=== PATIENT | female | born 1975 | race Caucasian/White ===

== ENCOUNTER 2023-01-31 10:01 | Emergency (ER) | payer OTHER, SELFPAY ==
[2023-01-31 10:13] VITALS: BP 126/69; PULSE 72; RESP 16; TEMP 36.6; O2SAT 100
--- NOTE | 2023-01-31 10:33 | ED.SKABFB ---
HPI - Skin/Abscess/Foreign Bdy General Chief complaint: Skin/Abscess/Foreign Body Stated complaint: Rt Nostril Irritation Source: patient Mode of arrival: ambulatory Limitations: no limitations History of Present Illness HPI narrative: 47-year-old female presents to [facility] with complaints of area of pain and swelling to her right inner nare since this morning. Patient was at she has had runny nose over the past few days. Patient reports that she does have a history of boils and abscesses in the past. 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 Patient denies weight loss. Fever, body aches, chills, nausea vomiting or diarrhea. Patient reports that she is scheduled for hysterectomy next month Onset (ago): hour(s) (4) Relieving factors: none Exacerbating factors: none Associated symptoms: other (runny nose) Treatments prior to arrival: none Related Data Home Medications Medication Instructions Recorded Confirmed atenolol 50 mg tablet 50 mg DIRECTED 01/31/23 01/31/23 cetirizine 10 mg tablet (Zyrtec) 10 mg PO DAILY 01/31/23 01/31/23 escitalopram oxalate 20 mg tablet 20 mg DIRECTED 01/31/23 01/31/23 valsartan 80 mg tablet 80 mg DIRECTED 01/31/23 01/31/23 Allergies Allergy/AdvReac Type Severity Reaction Status Date / Time Sulfa (Sulfonamide Allergy Unknown Verified 02/04/16 12:47 Antibiotics) Review of Systems Constitutional: Constitutional: Denies chills, Denies fatigue, Denies fever(s) and Denies weakness ENT: Denies dizziness, Denies epistaxis, Denies nasal congestion and Denies sore throat Comments: Runny nose, area pain and swelling to right inner nares Cardiovascular: Cardiovascular: Denies chest pain, Denies rapid heart rate and Denies radiating jaw, neck or arm pain Respiratory: Respiratory: Denies chest congestion, Denies cough, Denies dyspnea and Denies wheezing Gastrointestinal: Gastrointestinal: Denies diarrhea, Denies nausea and Denies vomiting PMFSH Comments At time of signature, I agree with nursing past medical, surgical, social and family history. There is no relevant family history pertinent to the presenting complaint. Exam Const: General: healthy appearing and no acute distress Nutritional Appearance: well nourished Orientation/consciousness: patient oriented x3 Limitations: no limitations HENMT: Head: normal to inspection Ears: external ears normal, TM's normal bilaterally and EAC's normal Face/Nose/Sinus: Normal external nose present Face and sinus: normal facial exam and sinuses nontender Mouth: Yes Normal oral and palatal mucosa present, Yes lip normal and Yes moist mucous membranes Other: Very small area of redness and swelling noted to right inner nares; there is no drainage, bleeding or bruising noted. There is no obvious abscess noted. There is no unusual discoloration noted. There is no drainage or bleeding noted from nares Eyes: Conjunctivae: conjunctivae normal Neck: Neck: normal visual inspection Resp: Effort & Inspection: normal respiratory effort and not labored Auscultation: clear to auscultation bilaterally, no crackles, no rales, no rhonchi and no wheezes Cardio: Rate: regular rate Rhythm: regular rhythm Heart sounds: no murmurs Skin: General skin exam: normal color Wounds: no wounds Neuro: General: patient oriented x3 Speech: normal speech Psych: Affect: normal affect Attitude: cooperative Course Course Level of Care: Express Care Visit Vital Signs Vital signs: Vital Signs Temperature 36.6 C 01/31/23 10:13 Pulse Rate 72 01/31/23 10:13 Respiratory Rate 16 01/31/23 10:13 Blood Pressure 126/69 01/31/23 10:13 Pulse Oximetry 100 01/31/23 10:13 Oxygen Delivery Room Air 01/31/23 10:13 Temperature 36.6 C 01/31/23 10:13 Pulse Rate 72 01/31/23 10:13 Respiratory Rate 16 01/31/23 10:13 Blood Pressure 126/69 01/31/23 10:13 Pulse Oximetry 100 01/31/23 10:13 Oxyg
== END 2023-01-31 10:45 | disposition home or self-care (01) ==
PROVIDERS: Emergency Provider Nurse Practitioner Family; PCP Family Medicine Sports Medicine
DX: R22.0 Localized swelling, mass and lump, head (principal)
CPT/HCPCS: 99213; G0463

== ENCOUNTER 2023-03-03 11:22 | Outpatient (CLI) | payer OTHER, SELFPAY ==
--- NOTE | 2023-03-03 11:32 | ECG_ITS ---
Measurements Intervals [place] Rate: 71 P: 71 MS: 163 QRS: 57 QRSD: 81 T: 52 QT: 396 QTc: 433 Interpretive Statements SINUS RHYTHM NO PREVIOUS ECG AVAILABLE FOR COMPARISON Electronically Signed On 03-03-2023 18:32:05 CDT by Marquise West M.D.
[2023-03-03 11:59] LABS: Alanine Aminotransferase 32 U/L (6-35); Albumin Level 4.6 g/dL (3.5-5.1); Alkaline Phosphatase 59 U/L (38-126); Anion Gap 4 mmol/L (8-16); Aspartate Amino Transferase 41 U/L (14-36); Bilirubin,Total 0.9 mg/dL (0.2-1.3); Blood Urea Nitrogen 8 mg/dL (7-17); Calcium 9.1 mg/dL (8.4-10.2); Carbon Dioxide 28 mmol/L (22-30); Chloride 104 mmol/L (98-107); Estimated Glomerular Filt Rate > 60; Glucose 90 mg/dL (65-110); Potassium 4.5 mmol/L (3.4-5.0); Sodium 136 mmol/L (137-145)
== END 2023-03-03 11:23 | disposition home or self-care (01) ==
LOC: ANHSURGERY 11:27
PROVIDERS: PCP Family Medicine Sports Medicine; Visit Provider Obstetrics & Gynecology
DX: N92.0 Excessive and frequent menstruation with regular cycle (principal); I10 Essential (primary) hypertension
CPT/HCPCS: 36415; 80053; 86850; 86900; 86901; 93005

== ENCOUNTER 2023-03-09 00:23 | Day surgery (SDC) | payer OTHER, SELFPAY ==
[2023-03-01 12:59] VITALS: BMI 26.2
--- NOTE | 2023-03-01 13:04 | PC.NURSE ---
Report to the Outpatient Waiting Room, entrance under the green pavilion located off [facility], at time 9:00 on date 03/09/23. Planned Procedure Time: 11:00. Time changes happen often and if your time is changed the preop area will call you the afternoon before. - You and your visitor will be asked to self-screen and do not enter if you have any COVID symptoms. - A mask is optional within the hospital at this time. Patients may have clear liquids (water, carbonated beverages, clear teas, apple juice) until 3 hours prior to surgery with a maximum of 20 ounces. - No food from midnight until time of surgery Take the following medications with a SIP of water the morning of surgery: ATENOLOL, ESCITALOPRAM DO NOT STOP ANY OF YOUR OTHER PRESCRIPTION MEDICATIONS PRIOR TO SURGERY EXCEPT THE FOLLOWING Medications to discontinue per physician: N/A Date to take last dose: N/A Please no make-up, nail belarusian, hairspray, perfume, deodorant, or body powder the day of surgery. No jewelry (including any body piercings) or valuables the day of surgery, leave them at home. Please take a shower or bath the night before, or the morning of, surgery with an antibacterial soap. Wear comfortable, loose fitting clothing. - Jewelry must be removed prior to entering the operating room. Rings and piercings that are not removed may be cut off. - The hospital will not accept responsibility for valuables. - Please leave all valuables, including medications, at home the day of surgery. If you are going home after surgery, a licensed recycle driver must drive you home. - NO public transportation without another adult if you receive anesthesia. - We recommend that an adult stay with you for 24 hours following discharge. - We also recommend that you do not drive, make important decision, drink alcoholic beverages, or take any drugs that were not prescribed by your health care provider for at least 24 hours after your discharge time. Follow any additional instructions given to you from your surgeon. If you or anyone in your household have experienced Covid symptoms in the past week, please notify your surgeon or the nurse liaison at the phone number below for possible testing. Telephone instructions given to PT - SHER VICTOR and asked if any additional questions and then verbalized understanding. Patient advised to call surgeon office or pre surgery nurse liaison [phone] if any additional questions.
[2023-03-09] VITALS (10 sets, daily range): BP systolic 92–132; BP diastolic 59–83; PULSE 58–74; RESP 10–18; TEMP 36.2–36.9; O2SAT 97–100
[2023-03-09] MEDS: ACETAMINOPHEN 500 MG TABLET 1000 MG PO (09:19)
[2023-03-09] MEDS: KETOROLAC 15 MG/ML VIAL (*BKC) IV PUSH (09:28)
--- NOTE | 2023-03-09 09:42 | WPDANESEPPF ---
Anes - Initial Pre Proc Eval Procedure: Operation Date: 03/09/23 11:00 Proposed Procedures p Robotic Assisted Hysterectomy with Bilateral Salpingectomy - Mili Guzman MD Date/Time: 03/09/23 09:42 Surgeon: Mili Guzman MD Pre Op Diagnosis: menorrhagia Patient Data Age: 47 Gender: F Height: 1.79 m Weight: 83.4 kg Last Vital Signs Temp 36.2 C L 03/09/23 09:03 Pulse 74 03/09/23 09:03 Resp 16 03/09/23 09:03 BP 132/83 03/09/23 09:03 Pulse Ox 99 03/09/23 09:03 O2 Del Method Room Air 03/09/23 09:03 Allergies Allergy/AdvReac Type Severity Reaction Status Date / Time Sulfa (Sulfonamide Allergy Intermediate Rash Verified 03/09/23 09:09 Antibiotics) Home Medications Medication Instructions Recorded Confirmed Type atenolol 50 mg tablet 50 mg PO DAILY 01/31/23 03/09/23 History cetirizine 10 mg tablet (Zyrtec) 10 mg PO DAILY 01/31/23 03/09/23 History escitalopram oxalate 20 mg tablet 20 mg PO DAILY 01/31/23 03/09/23 History valsartan 80 mg tablet 80 mg PO DAILY 01/31/23 03/09/23 History Patient hx anesthesia problems: post op nausea/vomiting Family hx anesthesia problems: none Results Review: All pre-operative results and documents have been reviewed as part of the pre-operative evaluation. [facility] Social History Social History Smoking packs per day: 0.75 Smoking cigarettes per day: 15.0 Years smoked: 27 Smoking pack-years: 20.25 Smoking status: Current every day smoker Tobacco type: cigarettes Alcohol intake: current Drinks per week: 14 Alcohol use details: WINE NIGHTLY Substance use: never Substance use type: does not use Living arrangements: with family Spiritual care concerns: No Anes - Eval Final PreProcedure Day of Procedure 03/09/23 09:42 Patient weight: overweight Heart: regular rate and rhythm Lungs: decreased breath sounds Airway: Mallampati scale class II Neurological: alert and oriented Last oral intake: >/= 8 hours ASA classification: III Emergent: no Anesthetic plan: proceed Anesthesia type and monitoring: general ETT and standard monitoring Results Review: All pre-operative results and documents have been reviewed as part of the pre-operative evaluation. Informed Consent: The patient's anesthetic plan and its attendant risks and benefits were discussed with the patient/family/POA. Questions were solicited and answers provided to the satisfaction of the patient/family/POA.
[2023-03-09] MEDS: SCOPOLAMINE 1.5 MG PATCH TRANSDERM (09:45)
[2023-03-09] MEDS: LACTATED RINGERS 1,000 ML 30 ML IV CONT ×2 (09:45→12:50)
--- NOTE | 2023-03-09 09:46 | WPDHPUPDATE1 ---
History and Physical Update Update Date/Time: 03/09/23 09:46 History and Physical has been reviewed, including an updated exam of the patient. There are NO changes in the patient's condition. Risks, benefits, and alternatives have been discussed and questions answered. Patient agrees to proceed with procedure.
[2023-03-09] MEDS: ceFAZolin 2 GM/D5W 50 ML 2 GM/50 ML BAG IVPB (10:15)
--- NOTE | 2023-03-09 12:26 | W.PM.PROC2 ---
Procedure Note - Detailed Date of Procedure 03/09/23 Pre-op Diagnosis menorrhagia Post-op Diagnosis Same Procedure Performed Robot assisted Total hysterectomy with bilateral salpingectomy. Surgeon Mili Guzman MD Anesthesia General Indications heavy vaginal bleeding, pelvic pain Findings normal-appearing uterus, ovaries, and left tube, right tube was partially resected. Some scarring over the posterior cul-de-sac peritoneum. Description of Procedure This patient was taken to the operating room. She was prepped and draped in the dorsal lithotomy position after induction of general anesthesia. The uterine manipulator and Smooth cup were placed. This was done with a speculum and tenaculum. The speculum was placed. The cervix was grasped with a tenaculum. The stay sutures were placed at 3 and 9:00 a.m.. The stay sutures of 0 Vicryl were tied to the appropriately Size scope after it was slipped around the cervix.. The tip of the SHALONDA manipulator was placed in the intrauterine cavity. The cup was slid into place around the cervix and into the fornices. It was locked into place. The sutures were then wrapped around the handle and tied under tension. A 8 mm skin incision was made in the left upper quadrant the abdomen. a 5 mm Visiport trocar was inserted into abdominal cavity and pneumoperitoneum was achieved. A 8 mm supraumbilical incision was made and a 8 mm trocar was inserted into the intrauterine cavity under direct visualization of the scope. an 8 mm incision was made in the right upper quadrant of the abdomen and an 8 mm robotic trocar was placed the inter uterine cavity under direct visualization the scope. An 11 mm trocar was inserted in the right upper quadrant of the abdomen rectal is a cystoscope after an incision was made there as well. The robot was docked. Electronic Orientation of the robot was performed. Bilateral ureteral lysis was performed. This was done from the pelvic brim down to the uterine artery. This was done with careful dissection using sharp and blunt dissection. The fallopian tubes were removed bilaterally. The mesosalpinx around the fallopian tubes were cauterized transected with LigaSure cautery. This was done in a bilateral fashion from the ovary to the uterine cornua. The fallopian tube was transected at the uterine cornu and amputated. The tube was taken out the left lower quadrant trocar site. In a stepwise fashion along the lateral aspects of the uterus the round ligament and broad ligaments were cauterized transected down to the level of the uterine arteries. A bladder flap was created in the bladder was moved distally to the end of the cervix and over the Smooth cup. The bilateral uterine arteries were cauterized and transected. Colpotomy was then performed. In a circumferential fashion the vagina was transected using unipolar cautery. The incision was made down on the Smooth cup. The uterus and cervix were taken out through the vagina. A pneumo occluder was placed in the vagina. The vaginal cuff was closed with a 0 V lock suture in a running fashion. The pelvis was irrigated with copious amounts antibiotic irrigation. The ureters were again examined and found to be intact and flowing freely under the uterine arteries into the bladder. The bladder was intact. It was examined directly. The vagina was irrigated with Betadine solution after removal of the Pneumo occluder. the trocars were removed after the robot was undocked. The skin was closed with subacute or Dermabond. The patient was taken to recovery room. She was stable condition. Sponge lap and needle counts were correct x2. Estimated Blood Loss 125 Urine Output 800 Drains Yes Packing No Pathology Yes Complications No immediate complications Condition Stable Disposition Floor
--- NOTE | 2023-03-09 13:58 | PC.NURSE ---
PT arrived on unit via bed accompanied by spouse and taken to room 289. PT alert and awake and oriented to room and surrounding area and white board. 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 PT and spouse both recipients of such instructions and no barriers to learning identified at this time. Pt received such instructions per one to one discussion and demonstrations this shift. PT verbalized understanding of such care.
[2023-03-09] MEDS: KETOROLAC 30 MG/ML VIAL (*BKC) IV PUSH (14:16)
[2023-03-09] MEDS: IBUPROFEN 600 MG TABLET PO (23:18)
[2023-03-10 05:10] VITALS: BP 98/57; PULSE 66; RESP 16; TEMP 36.9; O2SAT 100
[2023-03-10] MEDS: IBUPROFEN 600 MG TABLET PO (05:13)
[2023-03-10] MEDS: HYDROcodone/acetaminophen (*CRX) 5-325 MG TABLET 1 TAB PO ×2 (05:13→09:31)
[2023-03-10 07:20] VITALS: BP 98/68; PULSE 65; RESP 18; TEMP 37.1; O2SAT 100
[2023-03-10 08:00] VITALS: PULSE 72; RESP 18; O2SAT 100
--- NOTE | 2023-03-10 08:00 | PC.NURSE ---
PT introductions made and plan of care discussed per post up logistic manager surgery, pain management, daily care activities and pending discharge to home. PT sole recipient of such instructions and no barriers to learning identified at this time. Pt received such instructions per one to one discussion and demonstrations this shift. PT verbalized understanding of such care.
--- NOTE | 2023-03-10 08:12 | PM.GYNPNOP ---
ORTHOTIC PRACTITIONER - A/P Postoperative Procedures: Procedures Operation Date: 03/09/23 11:00 Actual Procedure Side Surgeon p Robotic Assisted Hysterectomy with Bilateral Salpingectomy Bilateral Mili Guzman MD Postoperative day: 1 Postoperative status: doing well Postoperative plan: see orders Time Spent With Patient Time: Total time spent is greater than 50% in coordination of care (as documented) at patient's floor/unit and/or counseling patient: Time with patient: 15 - 25 minutes ORTHOTIC PRACTITIONER- PN:Subj Post-Op Subjective Date/time seen: 03/10/23 08:12 Subjective: patient reports feeling better, patient has no complaints and pain is well controlled Exam Const: General: healthy appearing, comfortable and no acute distress Resp: Auscultation: clear to auscultation bilaterally, no rales, no rhonchi and no wheezes Cardio: Rate: regular rate Heart sounds: no click, no murmurs and no rubs GI: Inspection: non-distended Auscultation: normal bowel sounds Extrem: General: normal to inspection, no pedal edema and no calf tenderness ORTHOTIC PRACTITIONER - PN: Obj Data Vital Signs Vital Signs: Vital Signs - 24 hr 03/09/23 09:03 03/09/23 12:30 03/09/23 12:45 Temperature 97.1 F L 97.5 F L Pulse Rate 74 72 60 Respiratory Rate 16 16 16 Blood Pressure 132/83 127/59 L 113/76 Pulse Oximetry 99 100 100 Oxygen Delivery Room Air Simple Face Mask Simple Face Mask Oxygen Flow Rate 8 8 03/09/23 13:00 03/09/23 13:15 03/09/23 13:30 Temperature Pulse Rate 60 60 61 Respiratory Rate 10 L 12 16 Blood Pressure 92/69 L 110/62 100/70 Pulse Oximetry 100 99 100 Oxygen Delivery Simple Face Mask Room Air Room Air Oxygen Flow Rate 8 03/09/23 13:45 03/09/23 13:58 03/09/23 13:58 Temperature 98.3 F Pulse Rate 60 58 L 58 L Respiratory Rate 12 16 16 Blood Pressure 109/69 112/80 Pulse Oximetry 98 97 97 Oxygen Delivery Room Air Room Air Oxygen Flow Rate 03/09/23 20:40 03/09/23 20:40 03/09/23 23:18 Temperature 98.1 F 98.4 F Pulse Rate 58 L 61 Respiratory Rate 18 18 Blood Pressure 110/80 100/66 Pulse Oximetry 100 99 Oxygen Delivery Room Air Oxygen Flow Rate 03/09/23 23:18 03/10/23 05:10 03/10/23 05:10 Temperature 98.4 F Pulse Rate 66 Respiratory Rate 16 Blood Pressure 98/57 L Pulse Oximetry 100 Oxygen Delivery Room Air Room Air Oxygen Flow Rate 03/10/23 07:20 Temperature 98.8 F Pulse Rate 65 Respiratory Rate 18 Blood Pressure 98/68 L Pulse Oximetry 100 Oxygen Delivery Oxygen Flow Rate Intake/Output Intake/Output: Intake & Output 03/07/23 03/08/23 03/09/23 03/10/23 23:59 23:59 23:59 23:59 Intake Total 2675 Output Total 1605 Balance 1070 Meds/Results Medications: Active Medications Generic Name Dose Route Start Last Admin Trade Name Freq PRN Reason Stop Dose Admin Hydrocodone Bitart/Acetaminophen 1 tab 03/09/23 13:54 Hydrocodone/Acetaminophen (*Crx) 10-325 Mg Tablet PO Q3H PRN Pain Rated 6 or Greater Hydrocodone Bitart/Acetaminophen 1 tab 03/09/23 13:54 03/10/23 05:13 Hydrocodone/Acetaminophen (*Crx) 5-325 Mg Tablet PO 1 tab Q3H PRN Administration Pain Rated 5 or Less Atenolol 50 mg 03/10/23 09:00 Atenolol 50 Mg Tablet PO DAILY [facility] Escitalopram Oxalate 20 mg 03/10/23 09:00 Escitalopram Oxalate 10 Mg Tablet PO DAILY [facility] Ibuprofen 600 mg 03/09/23 13:54 03/10/23 05:13 Ibuprofen 600 Mg Tablet PO 600 mg Q6H PRN Administration Cramping Ketorolac Tromethamine 30 mg 03/09/23 13:54 03/09/23 14:16 Ketorolac 30 Mg/Ml Vial (*Bkc) IV PUSH 03/14/23 13:53 30 mg Q6H PRN Administration Pain Rated 4-6 Loratadine 10 mg 03/10/23 09:00 Loratadine 10 Mg Tablet PO 04/09/23 08:59 DAILY [facility] Naloxone HCl 0.1 mg 03/09/23 13:54 Naloxone Hcl 0.4 Mg/Ml Vial IV PUSH Q2M PRN Respiratory rate less than 10 Ondansetron HCl 4 mg 03/09/23 13:54 Ondansetron Inj 4 Mg/2 Ml Vial I
[2023-03-10] MEDS: ESCITALOPRAM OXALATE 10 MG TABLET 20 MG PO (09:31)
[2023-03-10] MEDS: LORATADINE 10 MG TABLET PO (09:31)
[2023-03-10 09:32] VITALS: PULSE 72
[2023-03-10] MEDS: VALSARTAN 80 MG TABLET PO (09:32)
[2023-03-10] MEDS: atenoloL 50 MG TABLET PO (09:32)
--- NOTE | 2023-03-10 11:00 | PC.NURSE ---
PT discharged to home ambulatory accompanied by both parents and taken to waiting car. Follow up appts confirmed
== END 2023-03-10 11:00 | disposition home or self-care (01) ==
LOC: ANHSURGERY 09:42 → ANHOB2 13:56
PROVIDERS: PCP Family Medicine Sports Medicine; Visit Provider Obstetrics & Gynecology
PROC: (CPT 58571; principal; 2023-03-09 11:00)
DX: N92.0 Excessive and frequent menstruation with regular cycle (principal); R10.2 Pelvic and perineal pain; N80.03 Adenomyosis of the uterus; D25.0 Submucous leiomyoma of uterus; D25.1 Intramural leiomyoma of uterus; D25.2 Subserosal leiomyoma of uterus; F17.210 Nicotine dependence, cigarettes, uncomplicated
CPT/HCPCS: 58571; S2900; 88305; 88307; 99199; A9270; J0690; J1100; J1170; J1885; J2250; J2405; J2704; J3010; J7030; J7120

== ENCOUNTER 2025-03-17 10:29 | Emergency (ER) | payer OTHER, SELFPAY ==
--- OUTSIDE RECORDS SUMMARY | 2025-03-17 10:32 | XMS_ITS | Clinical Summary ---
Author Organization [facility] Address [address] [place] [address] Care Team Providers Care [employer] Name Role Phone Nohemy Blandon MD Primary Care Provider [phone] Allergies Active Allergy Reactions Criticality Noted Date Comments Sulfa Antibiotics Unknown 05/31/2011 Medications cetirizine 10 MG tablet Take 10 mg by mouth daily. Active mupirocin (BACTROBAN) 2 % ointmentIndicatio ns:MRSA nasal colonization Apply 1 gm each nostril bid for 5 days 22 g 3 Active ALPRAZolam (XANAX) 1 MG tabletIndications :Anxiety with flying Take 1 tablet (1 mg total) by mouth 3 (three) times daily as needed for Sleep. 12 tablet 4 Active valsartan (DIOVAN) 80 MG tabletIndications :Primary hypertension TAKE 1 TABLET(80 MG) BY MOUTH DAILY 90 tablet 3 4 Active atenolol (TENORMIN) 50 MG tabletIndications :Tachycardia TAKE 1 TABLET(50 MG) BY MOUTH DAILY 90 tablet 3 4 Active azithromycin (ZITHROMAX) 250 MG tabletIndications :Acute non-recurrent frontal sinusitis Take 2 tablets by mouth on day one then 1 daily for four days. 6 tablet 5 Active escitalopram (LEXAPRO) 20 MG tabletIndications :Depression, unspecified depression type TAKE 1 TABLET(20 MG) BY MOUTH DAILY 30 tablet 5 Active Active Problems Problem Noted Date Diagnosed Date Tachycardia 11/22/2022 Anxiety 06/21/2018 Ventral hernia 01/12/2018 Resolved Problems Problem Noted Date Diagnosed Date Resolved Date Right elbow pain 11/28/2019 10/28/2022 Furuncle of skin or subcutaneous tissue 08/10/2018 10/28/2022 Tired 08/10/2018 10/28/2022 Abdominal mass 01/05/2018 10/28/2022 Graves disease 01/05/2018 10/28/2022 Encounter for preventive health examination 12/26/2017 07/25/2020 Thyrotoxicosis with thyrotoxic crisis 05/28/2014 10/28/2022 Overview (11/28/2019): Overview: THYROTOX NOS NO CRISIS Fracture of humerus 02/28/2012 10/28/20 22 Encounters Date Type Department Care Team Description 12/24/2024 Telephone [facility] Family and Sports Medicine - [address] [id number] Nohemy Blandon MD Work Excuse from Last 3 Months Immunizations Immunization Administration Dates Next Due Fluzone 6 Months+ Quad (0.5 mL Prefilled Syringe ) 10/21/2022 MODERNA COVID-19 (12+) MRNA, LNP-S, PF, 100 MCG/ 0.5 ML DOSE 12/25/2020,11/27/2020 Family History Medical History Relation Comments Heart Disease Father Heart Disease Maternal Grandfather CT Paternal Grandfather Relation Status Comments Father Maternal Grandfather Paternal Grandfather Social History Tobacco Use Types Packs/Day Years Used Date Smoking Tobacco: Every Day Cigarettes 1 25 Smokeless Tobacco: Never Tobacco Cessation:Ready to Q uit: No; Counseling Given: Not Answered Alcohol Use Standard Drinks/Week Comments Yes 11.7 (1 standard drink = 0.6 oz pure alcohol) AUDIT-C Answer Date Recorded Frequency of Alcohol Consumption Never 11/28/2019 Average Number of Drinks Not on file 020 Frequency of Binge Drinking Not on file 11/14 PHQ-2 Answer Date Recorded Patient Health Questionnaire-2 Score 0 10/21/2022 Comments Unknown Sex and Gender Information Value Date Recorded Sex Assigned at Not on file Legal Sex Female 5:54 PM CDT Gender Identity Not on file Sexual Orientation Not on file Last Filed Vital Signs Vital Sign Reading Time Taken Comments Blood Pressure 161/105 10/26/2023 10:47 AM OPERATIONS/DISPATCH Pulse 58 10/26/2023 10:47 AM OPERATIONS/DISPATCH Temperature 36.7 C (98.1 F) 10/26/2023 10:47 AM OPERATIONS/DISPATCH Respiratory Rate 16 10/26/2023 10:47 AM OPERATIONS/DISPATCH Oxygen Saturation 100% 10/26/2023 10:47 AM OPERATIONS/DISPATCH Inhaled Oxygen Concentration - - Weight 83.5 kg (184 lb) 10/26/2023 10:47 AM OPERATIONS/DISPATCH Height 179.1 cm (5' 10.5 ) 10/26/2023 10:[address] Body Mass Index 26.03 10/26/2023 10:47 AM OPERATIONS/DISPATCH Plan of Treatment Health Maintenance Due Date Last Done Comments DTaP, Tdap and Td Vaccines ( 1 - Tdap) 1996 Hepatitis B Vaccines (1 of 3 - 19+ 3-dose series) 1996 Pneumococcal Vaccine: Pediatrics (0 to 5 Years) and At-Risk Patients (6 to 49 Years) (1 of 2 - PCV) 1996 Cervical Cancer Screening Pa p with HPV Testing (Age 30 to 64) Every 5 Years 2007 Annual Physical 10/21/2023 10/21/2022, 02/17/2021 COVID-19 Vaccine (3 - 2023-2 5 season) 2024 12/25/2020, 11/27/2020 PHQ-2 (Physician [place]) 11/14/2024 Cervical Cancer Screening Pa p Smear (Age 30 to 64) Every 3 Years 10/05/2025 10/05/2022 Cervical Cancer Screening wi th HPV 10/05/2025 Colorectal Cancer Screening FIT-DNA (3 Years) 11/26/2025 11/26/2022, 11/26/2022 Mammogram Screening 12/20/2025 12/20/2023, 03/02/2021 Hepatitis C Completed 10/21/2022 Meningococcal B Vaccine Aged Out No l onger eligible based on patient's age to complete this topic Meningococcal Vaccine Aged Out No ozzy estefany eligible based on patient's age to complete this topic RSV Immunizations Under 20 Months Aged Out No longer eligible b ased on patient's age to complete this topic Procedures Procedure Name Priority Date/Time Associated Diagnosis Comments MG SCREENING W DORYS FATOU DIGI Routine 12/20/2023 3:21 PM OPERATIONS/DISPATCH Annual physical exam COLOGUARD (EXACT SCIENCE) Routine 11/26/2022 9:55 AM OPERATIONS/DISPATCH Encounter for colorectal cancer screening HEPATITIS PANEL,ACUTE Routine 10/21/2022 4:14 PM OPERATIONS/DISPATCH Annual physical exam from Last 3 Months or Most Recently Relevant to Health Maintenance Results * MG SCREENING W DORYS FATOU DIGI (12/20/2023 3:21 PM OPERATIONS/DISPATCH) Anatomical Region Laterality Modality Breast Bilateral Mammography 12/20/2023 5:22 PM OPERATIONS/DISPATCH Narrative 12/20/2023 5:27 PM OPERATIONS/DISPATCH Examination: Screening bilateral mammogram Exam Date: 12/20/2023 3:09 PM Clinical history: Routine screening. Comparison: 03/02/2021 Technique: Digital screening mammography of both breasts was performed. Breast tomosynthesis acquisitions were obtained and reviewed. This study was read with the assistance of a computer-aided detection system. Tissue density: The breast tissue is heterogeneously dense, which may obscure small masses. Findings: The breast parenchymal findings are stable. Scattered benign-appearing calcifications are noted. No suspicious masses, malignant appearing calcifications, skin thickening or other abnormalities are present. No significant change from the prior exam. IMPRESSION: No suspicious mammographic findings. Recommendation: 1. Routine Screening, Bilateral Assessment: ACR BI-RADS 2 - BENIGN FINDING(S) Ordered By: NOHEMY BLANDON Interpreted By: Colby Jo MD, 12/20/2023 5:22 PM us Nohemy Blandon MD MAMMO Final Result * COLOGUARD (EXACT SCIENCE) (11/26/2022 9:55 AM OPERATIONS/DISPATCH) COLOGUARD RESULT Negative Negative [facility] (CLIA #:[id number]) Comment: NEGATIVE TEST RESULT. A negative Cologuard result indicates a low likelihood that a colorectal cancer (CRC) or advanced adenoma (adenomatous polyps with more advanced pre-malignant features) is present. The chance that a person with a negative Cologuard test has a colorectal cancer is less than 1 in 1500 (negative predictive value >99.9%) or has an advanced adenoma is less than 5.3% (negative predictive value 94.7%). These data are based on a prospective cross-sectional study of 10,000 individuals at average risk for colorectal cancer who were screened with both Cologuard and colonoscopy. (Nino Finn al, N Engl J Med 2014;370(14):1536-4378) The normal value (reference range) for this assay is negative. COLOGUARD RE-SCREENING RECOMMENDATION: Periodic colorectal cancer screening is an important part of preventive healthcare for asymptomatic individuals at average risk for colorectal cancer. Following a negative Cologuard result, the [place] [employer] and U.S. Multi-Society Task Force screening guidelines recommend a Cologuard re-screening interval of 3 years. References: [place] [employer] Guideline for Colorectal Cancer Screening: https://www.cancer.org/cancer/tccyq-gjhejz-zpmtam/fdqmzzniy-dymuwqghu-twsgflf/ac s-rec ommendations.html.; Dustin DK, Antonieta CARRASCO, Angel BranchK, Colorectal Cancer Screening: Recommendations for Physicians and Patients from the U.S. Multi-Society Task Force on Colorectal Cancer Screening , Am J Gastroenterology 2017; 112:3614-0123. TEST DESCRIPTION: Composite algorithmic analysis of stool DNA-biomarkers with hemoglobin immunoassay. Quantitative values of individual biomarkers are not reportable and are not associated with individual biomarker result reference ranges. Cologuard is intended for colorectal cancer screening of adults of either sex, 45 years or older, who are at average-risk for colorectal cancer (CRC). Cologuard has been approved for use by the U.S. FDA. The performance of Cologuard was established in a cross sectional study of average-risk adults aged 50-84. Cologuard performance in patients ages 45 to 49 years was estimated by sub-group analysis of near-age groups. Colonoscopies performed for a positive result may find as the most clinically significant lesion: colorectal cancer [4.0%], advanced adenoma (including sessile serrated polyps greater than or equal to 1cm diameter) [20%] or non- advanced adenoma [31%]; or no colorectal neoplasia [45%]. These estimates are derived from a prospective cross-sectional screening study of 10,000 individuals at average risk for colorectal cancer who were screened with both Cologuard and colonoscopy. (Nino Finn al, N Engl J Med 2014;370(14):2652-4040.) Cologuard may produce a false negative or false positive result (no colorectal cancer or precancerous polyp present at colonoscopy follow up). A negative Cologuard test result does not guarantee the absence of CRC or advanced adenoma (pre-cancer). The current Cologuard screening interval is every 3 years. ([place] [employer] and U.S. Multi-Society Task Force). Cologuard performance data in a 10,000 patient pivotal study using colonoscopy as the reference method can be accessed at the following location: www.Stemnion/results. Additional description of the Cologuard test process, warnings and precautions can be found at www.[employer]. STOOL STOOL SPECIMEN / Unknown 11/26/2022 9:55 AM OPERATIONS/DISPATCH 11/27/2022 9:40 AM OPERATIONS/DISPATCH Nohemy Blandon MD BODY FLUIDS AND STOOLS ORDERAB LES Final Result [facility] [address] [place] [address], [facility] (CLIA #:[id number]) [address] [place] [id number] * HEPATITIS PANEL,ACUTE (10/21/2022 4:14 PM OPERATIONS/DISPATCH) HEPATITIS B SURFACE AG NON-REACT JUAN M NON-REACT JUAN M 10/21/2022 9:48 PM OPERATIONS/DISPATCH [facility] Comment:HBsAg NOT DETECTED. HEP B CORE IGM NON-REACT JUAN M NON-REACT JUAN M 10/21/2022 9:48 PM OPERATIONS/DISPATCH [facility] Comment: IgM ANTI HBc NOT DETECTED. DOES NOT EXCLUDE THE POSSIBILITY OF EXPOSURE TO OR INFECTION WITH HBV. NO RETEST REQUIRED. HIGH DOSES OF BIOTIN MAY INTERFERE WITH THIS TEST RESULT. CORRELATION TO CLINICAL HISTORY AND PRESENTATION RECOMMENDED. HAV IGM NON-REACT JUAN M NON-REACT JUAN M 10/21/2022 9:48 PM OPERATIONS/DISPATCH [facility] Comment: IgM ANTI HAV NOT DETECTED. DOES NOT EXCLUDE THE POSSIBILITY OF EXPOSURE TO OR INFECTION WITH HAV. LEVELS OF IgM ANTI HAV MAY BE BELOW THE CUTOFF IN EARLY INFECTION. HEPATITIS C AB NON-REACT JUAN M NON-REACT JUAN M 10/21/2022 9:48 PM OPERATIONS/DISPATCH [facility] Comment: ANTIBODIES TO HCV NOT DETECTED. DOES NOT EXCLUDE THE POSSIBILITY OF EXPOSURE TO HCV. 10/21/2022 4:14 PM OPERATIONS/DISPATCH Nohemy Blandon MD LABORATORY Final Result [facility] [address] [place] [address], [id number] from Last 3 Months or Most Recently Relevant to Health Maintenance Insurance GENERIC - COMMERCIAL [facility] Care Teams [employer] Relationship Specialty Start Date End Date Nohemy Blandon MD [address] [address] PCP - General FAMILY PRACTICE 05/08/19
--- OUTSIDE RECORDS SUMMARY | 2025-03-17 10:32 | XMS_ITS | Encounter Summary ---
Author Organization [facility] Address [address] [place] [id number] Care Team Providers Care Coding Quality Coordinator Name Role Phone Nohemy Peck MD Primary Care Provider [phone] Encounter Details Date Type Department Care Team (Late st Contact Info) Description 10/11/2022 SeeFuture Message Enc [facility] Medical Group Family and Sports Medicine - [place] [phone] [facility] Schedule Appointment: Annual Physical Due Social History Tobacco Use Types Packs/Day Years Used Date Smoking Tobacco: Every Day Cigarettes 1 25 Smokeless Tobacco: Never Alcohol Use Standard Drinks/Week Comments Yes 11.7 (1 standard drink = 0.6 oz pure alcohol) AUDIT-C Answer Date Recorded Frequency of Alcohol Consumption Never 11/28/2019 Average Number of Drinks Not on file 020 Frequency of Binge Drinking Not on file 11/14 PHQ-2 Answer Date Recorded PHQ-2 Score - If the patient scores above 3, please move on to questions 3-9 0 02/17/2021 Comments Unknown Sex and Gender Information Value Date Recorded Sex Assigned at Not on file Legal Sex Female 5:54 PM CDT Gender Identity Not on file Sexual Orientation Not on file documented as of this encounter Plan of Treatment Not on file documented as of this encounter Visit Diagnoses Not on filedocumented in this encounter Additional Health Concerns Assessment Noted Time PHQ-9 Depression Total Score: 3 02/18/20 21 2:16 PM CDT documented as of this encounter Care Teams Coding Quality Coordinator Relationship Specialty Start Date End Date Nohemy Peck MD [address] [address] PCP - General FAMILY PRACTICE 05/08/19 documented as of this encounter
--- OUTSIDE RECORDS SUMMARY | 2025-03-17 10:32 | XMS_ITS | Data Portability ---
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 Plan of Treatment Reminders Order Date Submit Date Provider Last Modified By Organization Details Last Modified Time Details Appointments None recorded. Lab None recorded. Referral None recorded. Procedures None recorded. Surgeries robotic assisted hysterectom y with salpingecto my (SURG) 2022 023 [facility] [address], [place], [address], 13:30:04 Imaging US, pelvis 2022 [address]23 [address], [address], [place], [address], 21:10:08 US, transvagina l 2022 [address], [address], [place], [address], 21:10:08 Medication Orders None recorded. Patient TargetsNo targets recorded. Patient InstructionsNo instructions recorded. Reason for Referral None Reported. Results Created Date Observation Date Name Description Value Unit Range Abnormal Flag Note LastModifiedBy Organization Detail LastModifiedTime 01/21/2001/20/2023 US, pelvi s No observ ation record ed. [email or web address] [place] [address], [place], [address], 01/20/2023 18:41:12 01/21/20 23 01/20/2023 US, trans vagin al No observ ation record ed. [email or web address] [place] [address], [place], [address], 01/20/2023 18:41:03 01/21/20 23 01/20/2023 US, pelvi s No observ ation record ed. PAVITHRA Ryann [address], [place], [address], 01/24/2023 20:24:08 Result Notes None recorded. Procedures Surgical History Date Name Laterality Status Provider Name and Address Organization Details Recorded Time 03/09/20 23 ROBOTIC ASSISTED HYSTERECTOMY WITH SALPINGECTOMY (SURG) completed [facility] 03/10/2023 10:08:53 03/09/20 23 ROBOTIC ASSISTED HYSTERECTOMY WITH SALPINGECTOMY (SURG) completed [facility] 03/10/2023 10:08:47 10/05/20 22 Date of Last Pap Smear completed [facility] 01/05/2023 17:06:56 Orthopedic Surgery completed [facility] 09/28/2022 15:47:11 Imaging Results Imaging Date Name Status LastModified by Organization Details LastModified Time 01/20/2023 US, pelvis completed turn[facility] [place] [address], [place], [address], 01/20/2023 18:41:12 01/20/2023 US, transvaginal completed [facility] [place] [facility] [address], [place], [address], 01/20/2023 18:41:03 01/20/2023 US, pelvis completed PAVITHRA Ryann [address], [place], [address], 01/24/2023 20:24:08 Procedure Notes None recorded. Medical Equipment None Reported. Allergies Allergen ID Allergen Name Allergen Category Reaction Reaction Severity Criticality Documentation Date Start Date Code Code System Note Provider Name and Address Organization Details Recorded Time Substance with sulfonami de structure and antibacte rial mechanism of action (substanc e) medicatio n rash moderate Not available 01/21/2023 [id number] SNOMED Starlaramin Barber [facility] 3 10:04:32 Medications Name Sig Start Date Stop Date Status Note LastModified by Organization Details LastModified Time trazodone 50 mg tablet active Not Available Not Available Not Available hydrocodone 5 mg-acetamin ophen 325 mg tablet TAKE 1 TO 2 TABLETS BY MOUTH EVERY 6 HOURS NEEDED FOR PAIN active Not Available Not Available No t Available valsartan 80 mg tablet 1 tablet every day by oral route. active Not Available Not Available No t Available Zyrtec 10 mg tablet active Not Available Not Available No t Available metronidazo le 500 mg tablet TAKE 1 TABLET BY MOUTH EVERY 8 HOURS active Not Available Not Available No t Available citalopram 20 mg tablet 01/05 completed Not Available Not Available Not Available cephalexin 500 mg capsule TAKE 1 CAPSULE BY MOUTH EVERY 12 HOURS FOR 10 DAYS active Not Available Not Available No t Available mupirocin 2 % topical ointment APPLY 1 GRAM TOPICALLY IN EACH NOSTRIL TWICE DAILY FOR 5 DAYS active Not Available Not Available No t Available atenolol 50 mg tablet 1 tablet every day by oral route. active Not Available Not Available No t Available naproxen 500 mg tablet 01/05 completed Not Available Not Available Not Available escitalopra m 10 mg tablet 01/05 completed Not Available Not Available Not Available escitalopra m 20 mg tablet active Not Available Not Available Not Available Slynd 4 mg (28) tablet Take 1 tablet every day by oral route. 01/04 completed [id number] 05/03 24 Not Available Not Available Not Available BinaxNOW COVID-19 Ag Self Test kit TEST DIRECTED TODAY 09/28 completed Not Available Not Available Not Available Vitals Date Recorded Body height Body mass index (BMI) Body weight Systolic blood pressure Diastolic blood pressure Provider Name and Address Organization Details Last Updated DateTime 01/21/2023 177.8 cm 26.7 kg/m2 37080.18 g 114 mm[Hg] 77 mm[Hg] [facility] 3 10:06:48 Date Recorded Body height Body mass index (BMI) Body weight Systolic blood pressure Diastolic blood pressure Provider Name and Address Organization Details Last Updated DateTime 03/03/2023 177.8 cm 26.8 kg/m2 09910.77 g 109 mm[Hg] 76 mm[Hg] [facility] 3 15:13:19 Date Recorded Body height Body mass index (BMI) Body weight Systolic blood pressure Diastolic blood pressure Provider Name and Address Organization Details Last Updated DateTime 03/17/2023 177.8 cm 26.7 kg/m2 94899.18 g 121 mm[Hg] 86 mm[Hg] [facility] 3 15:33:39 Social History Question Answer Notes LastModified by Organizat ion Details LastModified Time Do You Have An Advance Directive? Yes Information n ot available 09/28/2022 What Is Your Level Of Alcohol Consumption? Occasional Information not available 09/28/2022 How Many Years Have You Consumed Alcohol? 25 Information not available 09/28/2022 Are You Blind Or Do You Have Difficulty Seeing? No Information n ot available 09/28/2022 What Is Your Level Of Caffeine Consumption? Heavy Information not available 09/28/2022 In The 14 Days Before Symptom Onset, Have You Had Close Contact With A Laboratory-confirm ed COVID-19 While That Case Was Ill? No Information n ot available 09/28/2022 In The 14 Days Before Symptom Onset, Have You Had Close Contact With A Person Who Is Under Investigation For COVID-19 While That Person Was Ill? No Information not available 09/28/2022 Have You Been To An Area Known To Be High Risk For COVID-19? No Information not available 09/28/2022 Are You Deaf Or Do You Have Serious Difficulty Hearing? No Information not available 09/28/2022 What Type Of Diet Are You Following? REGULAR Information n ot available 09/28/2022 What Is The Highest Grade Or Level Of School You Have Completed Or The Highest Degree You Have Received? 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 Yes Information not available 09/28/2022 Do You Use Protection During Sex? No Information not available 09/28/2022 Do You Use Your Seat Belt Or Car Seat Routinely? Yes Information not available 09/28/2022 Do You Have Smoke And Carbon Monoxide Detectors In Your Home? Yes Information not available 09/28/2022 At What Age Did You Start Smoking Tobacco? 19 Information not available 09/28/2022 How Much Tobacco Do You Smoke? 1 PPD Information not available 09/28/2022 Do You Feel Stressed (tense, Restless, Nervous, Or Anxious, Or Unable To Sleep At Night)? [id number] Information not available 09/28/2022 Do You Use Any Illicit Or Recreational Drugs? No Information not available 09/28/2022 Do You Use Sunscreen Routinely? Yes Information not available 09/28/2022 How Many Years Have You Smoked Tobacco? 28 Information not available 09/28/2022 Have You Used IV Drugs? No Information not available 09/28/2022 Sex: Unknown Functional Status Question Answer Note LastModified by Organizat ion Details LastModified Time Do you have difficulty walking or climbing stairs? No [email or web address] Information not available 03/03/2023 Are you able to walk? YESWOREST Information not available 09/28/2022 Are you able to care for yourself? Yes [email or web address] Information not available 03/03/2023 Do you have difficulty dressing or bathing? No [email or web address] Information not available 03/03/2023 What is your exercise level? None Information not available 09/28/2022 Mental Status None recorded. Family History Nothing Reported. Medical History Condition Response Anxiety Disorder Y Allergies (Food, seasonal, environmental ) Y Drug/Latex Allergies/Reactions Y Depression/ depression Y Anesthesia Complications Y History of abnormal pap Y Cancer Y Thyroid Problems Y Hypertension Y Gynecological History Statement/Question Response Abnormal Pap Y Flow Moderate Date of LMP 12/18/2022 On BCP's at Conception? N Was last menstrual period normal Y STIs/STDs Y HPV Vaccine N Duration of Flow (days) 5 Current Control Method Hysterectom y Age at First Child 27 Frequency of Cycle (Q days) 28 Sexually Active? Y Age of first menstrual cycle 14 Date of Last Pap Smear 10/05/2022 Sexual Problems? Y LMP Approximate Obstetrics History GPAL:G 2 P 0 0 0 2 Type Value Living 2 Total 2 Past Encounters Encounter ID Performer Location Encounter Start Date Encounter Closed Date Diagnosis/Indication Diagnosis SNOMED-CT Code Diagnosis ICD10 Code Diagnosis Note [id number] MEETA Torres [place] [address],[facility] [place] [address] 09/28/2022 15:23:11 09/28/2022 17:57:39 Vulval irritation 826830777 N90.89 Suspect contact dermatitis Vaginitis panel sentVulvar care guidelines discussed in-depthD/ c use of antibacter ial soap to cleanse the vulva/vagi naRx sent - apply twice a day for 7 daysSTI testing declined RTC for CAMELIA as she is due - last pap around 7 years ago Time spent in visit is a total of 30 mins with at least 50% of visit consisting of counseling and review of plan of care. Contact dermatitis 52202 004 L25.9 [id number] MEETA Torres [place] [address],[place] [address] 10/05/2022 10:21:32 10/05/2022 12:11:35 Contraception care management 312850820 Z30.9 Gynecologi c examination 98375984 Z01.419 Suggested Calcium with Vitamin D 1200-1500m g daily. Patient advised to get an annual flu shot in the fall and she could obtain at [facility] or [facility] care clinic. Also to obtain TDap vaccinatio n if you have not had one in the last 10 years. Recommend yearly mammograms . Encouraged monthly self breast exams. Encourage safe sexual practices, to use condoms and limit partners if not already in a monogamous relationsh ip. Engage in daily exercise of low impact aerobic exercise 45-60 minutes 4-5 times weekly. Avoid tobacco and illicit drugs as well as using moderation with alcohol intake less than 1-2 8 oz beverages daily. This lifestyle behavior pattern will lead to less health conditions and longer life span. If BMI greater than 25 weight watchers or dietary consult advised. All questions have been answered. Patient appears to understand informatio n, but if you have any questions please call or respond to this email. WWEBC - partner with vasectomyW ould like to discuss BC options to lighten the periods and reduce crampsDeni es hx of DVT/PE, HTN, Stroke/FL, liver disease, BC, or migraine with aura Discussed all control options in great detail. Pt would like to start POP. She is aware of the risks and benefits. She has contraindi cations to use of OCP or other estrogen containing hormonal therapy. Pt will start her pills on the first tuesday following the start of her period. She is aware it is not effective for control the first month. She is also aware of the importance of taking at the same time every day. Encouraged use of condoms as the pill does not protect against STD's. Will return in 3 months for med check. Consent was read and signed. Pt verbalized understand ing.Abel samples given x 4 monthsRTC for med check in 3 months Hx of abnormal pap years ago - no procedures required per patientLas t pap 7 years agoPap done todaySTI testing declinedUT D with PCPMammogr am order givenColon cancer screening discussed - she will consider colonoscop y vs cologuard and f/u with PCPRTC for 3 month med check Elevated blood-pressure reading without diagnosis of hypertension 270632083 R03.0 BP 140/90 - no symptoms. She will f/u with PCP for BP check and check BP at home. ED precaution s discussed [id number] MEETA Torres [place] [address] [address] 01/05/2023 16:57:27 01/05/2023 17:39:48 Contraception care management 313482959 Z30.9 She recently stopped slynd. We discussed options moving forward to help lighten/ma ke periods less painful. Discussed available options. Not interested in an IUD. She would like to consider an ablation.W e agreed to repeat TVUS for hx of complex right ovarian cyst, u/s f/u with Dr. Guzman as she would like to consider an ablation. Time spent in visit is a total of 20 mins with at least 50% of visit consisting of counseling and review of plan of care. Complex cy st of right ovary [id number] 2795392 N83.291 [id number] Wade Guzman MD [place] [address] [address] 01/20/2023 17:22:13 01/21/2023 15:10:30 Uterine leiomyoma 51315437 D25.9 N83.291 [id number] Wade Guzman MD [place] [address] [address] 01/21/2023 09:48:10 01/24/2023 10:32:09 Menorrhagia 067090716 N92.0 This patient is a 47-year-ol d female with uterine fibroids and severe menorrhagi a. She has longstandi ng heavy bleeding that has failed medical treatment. She has accidents, getting blood on her bedding and clothing and her car. Her bleeding severely affects her quality of life and activities of daily living. Her FX relationsh ips with significan t other. We talked about treatment options in detail. She has failed multiple medical treatment options. We talked about surgical treatment options. We talked about procedures . We spent 40 minutes face-to-fa ce. More than 50% was counseling . We made a decision to perform surgery. We agreed to proceed with robotic or laparoscop ic hysterecto my with bilateral salpingect xenia. I explained the procedure to her in detail. I talked about risk with her. She will return for the informed consent process. Uterine leiomyoma 497949 05 D25.9 N83.291 [id number] Wade Guzman MD [place] [address] [address] 03/03/2023 15:03:12 03/04/2023 13:15:32 Menorrhagia 705863930 N92.0 Uterine leiomyoma 458612 05 D25.9 N83.291 this patient is a 47-year-ol d female with myoma and severe menorrhagi a. We have agreed to perform robotic assisted total hysterecto my with bilateral salpingect xenia. She understand s risks, benefits, and alternativ es. She has completed the informed consent process and is ready to proceed. [id number] Wade Guzman MD [place] [address] [address] 03/11/2023 09:26:08 03/11/2023 09:27:22 [id number] Wade Guzman MD [place] [address] [address] 03/17/2023 15:04:11 03/17/2023 16:28:02 Postoperative care 718465749 Z48.89 this patient is a 47-year-ol d female presents for postop follow-up. She is 1 week postop from a robotic hysterecto my with bilateral salpingect xenia. She is recovering normally. She looks well. She reports clean dry and intact incisions. They were examined and are clean dry and intact. There is no bruising. No evidence infection. She will return to work next week. Health Concerns Section Related Observation LastModified by Organization Detai ls LastModified Time None Recorded Concern Status LastModified by Organization Details LastModified Time None Recorded Advance Directives Directive Y: Payers Encounter Date Sequence Insurance Name Policy Number Policy Tijerina Covered Member ID Tijerina Member ID Guarantor Name 01/20/2023 1 [employer] [id number] Andreina Allena [id number] Andreina Waynelia 01/21/2023 1 [employer] [id number] Andreina Penaavalia [id number] Andreina Penaavalia 03/03/2023 1 [facility] ([facility]) Andreina Waynelia [id number] Andreina Bartolome 03/09/2023 1 [facility] ([facility] Andreina Mancuso [id number] Andreina Mancuso 03/17/2023 1 [facility] ([facility] Andreina Mancuso [id number] Andreina Mancuso Notes Date Note Type Note Provider Name and Address Organization Details Recorded Time 01/21/2023 text/html This patient is a 47-year-old female with uterine fibroids and severe menorrhagia. She has longstanding heavy bleeding that has failed medical treatment. She has accidents, getting blood on her bedding and clothing and her car. Her bleeding severely affects her quality of life and activities of daily living. Her FX relationships with significant other. We talked about treatment options in detail. She has failed multiple medical treatment options. We talked about surgical treatment options. We talked about procedures. We spent 40 minutes [id number]. More than 50% was counseling. We made a decision to perform surgery. We agreed to proceed with robotic or laparoscopic hysterectomy with bilateral salpingectomy. I explained the procedure to her in detail. I talked about risk with her. She will return for the informed consent process. Wade Guzman MD [address], [place], [address], [facility] 01/21/2023 18:24:27 03/03/2023 text/html This patient is a 47-year-old female with uterine fibroids and severe menorrhagia. We have agreed to perform robotic assisted hysterectomy with bilateral salpingectomy. She understands there is risk to the procedure. I explained the procedure to her in detail. The patient understands the procedure. The procedure was described to the patient in great detail. the patient also understands the risks. The risks were also explained in detail. She understands that injuries May occur during surgery. She understands these injuries can result in hospitalization, more surgery, and severe illness. She understands there is risk of hemorrhage and infection. Wade Guzman MD [address], [place], [address], [facility] 03/05/2023 12:38:52 03/17/2023 text/html this patient is a 47-year-old female presents for postop follow-up. She is 1 week postop from a robotic hysterectomy with bilateral salpingectomy. She is recovering normally. She looks well. She reports clean dry and intact incisions. They were examined and are clean dry and intact. There is no bruising. No evidence infection. She will return to work next week. Wade Gumzan MD [address], [place], [address], [facility] 03/17/2023 16:25:01 OBGyn Episode Ob Episode Information Episode Created Date Number of Fetuses Patient Bloodtype Patient rh Status Prepregnancy Weight lbs Domestic Partner Domestic Partner Phone Father Name Mine Shifter Status 09/28/20 22 1 CLOSED Fetus Data First Name Last Name Admitted to NICU Weight (g) Sex Living Outcome Pediatric Complications Fetus ID Race Codes Race Delivery Type 4195.72 6 F Full Term [id number] Vaginal Delivery Sin Calculation Initial Sin Date Initial Exam Date Initial Exam Provider Initial Ultrasound Date Last Menstrual Period Date Ultra Sound Weeks Gestation 0 Eighteen To Twenty Week Sin Update Ultra Sound Date Fundal Height At Umbil Quickening Date Ultra Sound Latest Weeks Gestation Final Sin Confirmed By Final Sin Confirmed Date Final Sin Date Ultra Sound Latest Days Gestation 0 0 Menstrual History Last Menstrual Date Menses Monthly On Bcp Conception Prior Menses Frequency Hcg Plus Date Menarche Onset Age Delivery Information Delivery Date Delivery Type Labor Anesthesia Weeks Gestation Incision Type Labor Labor Length Hrs Delivered By Post Complications Tubal Sterilization Discharge Date Comments 3 38 Discharge Information Feeding Method Contraceptive Method Maternal HG B and HCT Levels Ob Episode Information Episode Created Date Number of Fetuses Patient Bloodtype Patient rh Status Prepregnancy Weight lbs Domestic Partner Domestic Partner Phone Father Name Mine Shifter Status 09/28/20 22 1 CLOSED Fetus Data First Name Last Name Admitted to NICU Weight (g) Sex Living Outcome Pediatric Complications Fetus ID Race Codes Race Delivery Type 3770.25 6704 M Full Term [id number] Vaginal Delivery Sin Calculation Initial Sin Date Initial Exam Date Initial Exam Provider Initial Ultrasound Date Last Menstrual Period Date Ultra Sound Weeks Gestation 0 Eighteen To Twenty Week Sin Update Ultra Sound Date Fundal Height At Umbil Quickening Date Ultra Sound Latest Weeks Gestation Final Sin Confirmed By Final Sin Confirmed Date Final Sin Date Ultra Sound Latest Days Gestation 0 0 Menstrual History Last Menstrual Date Menses Monthly On Bcp Conception Prior Menses Frequency Hcg Plus Date Menarche Onset Age Delivery Information Delivery Date Delivery Type Labor Anesthesia Weeks Gestation Incision Type Labor Labor Length Hrs Delivered By Post Complications Tubal Sterilization Discharge Date Comments 5 38 Discharge Information Feeding Method Contraceptive Method Maternal HG B and HCT Levels
--- NOTE | 2025-03-17 10:35 | ED_ITS ---
HPI - General Adult General Chief complaint: Skin/Abscess/Foreign Body Stated complaint: Skin/Abscess/Foreign Body Time Seen by Provider: 03/17/25 10:35 Source: patient Mode of arrival: ambulatory Limitations: no limitations History of Present Illness HPI narrative: 49-year-old female patient presents to the [facility] with complaints of a wound to the left groin that has been there for about a week. Patient states she gets boils to this area often and states that if she does use any kind of razor to the groin area she immediately put some mupirocin on the area to decrease risk of infection. Patient states she typically treats this with some you proceed then however this 1 has stuck around for little bit longer than normal. Patient states that she did wake up with a little bit of discharge in her underwear. Denies fevers, body aches or chills. Denies any nausea, vomiting or diarrhea. Related Data Home Medications ?Medication ?Instructions ?Recorded ?Confirmed ?Last Taken ?Type atenolol 50 mg tablet 50 mg PO DAILY 01/31/23 03/17/25 03/09/23 History cetirizine 10 mg tablet (Zyrtec) 10 mg PO DAILY 01/31/23 03/17/25 03/08/23 History escitalopram oxalate 20 mg tablet 20 mg PO DAILY 01/31/23 03/17/25 03/09/23 History valsartan 80 mg tablet 80 mg PO DAILY 01/31/23 03/17/25 03/08/23 History Allergies Allergy/AdvReac Type Severity Reaction Status Date / Time Sulfa (Sulfonamide Allergy Intermediate Rash Verified 03/17/25 10:35 Antibiotics) Review of Systems Review of Systems: CONSTITUTIONAL: Denies fever, chills, or sweats. EYES: Denies visual changes, redness, or discharge. ENT: Denies rhinorrhea, congestion, sore throat, or otalgia. CARDIOVASCULAR: Denies chest pain, palpitations, or edema. RESPIRATORY: Denies cough or dyspnea. GASTROINTESTINAL: Denies abdominal pain, nausea, vomiting, or diarrhea. GENITOURINARY: Denies dysuria or hematuria. SKIN: Denies rash or itching. Positive wound to left groin x1 week MUSCULOSKELETAL: Denies back pain, joint pain, or myalgia. NEUROLOGIC: Denies headache, numbness, or weakness. PSYCHIATRIC: Denies anxiety or depression. [facility] Past Medical History Medical History (Updated 03/17/25 @ 10:58 by ISRAEL Dove) Boils Social History Social History Smoking packs per day: 0.75 Smoking cigarettes per day: 15.0 Years smoked: 27 Smoking pack-years: 20.25 Smoking status: Current every day smoker Tobacco type: cigarettes Alcohol intake: current Drinks per week: 14 Alcohol use details: WINE NIGHTLY Substance use: never Substance use type: does not use Living arrangements: with family Spiritual care concerns: No Comments At the time of my signature I agree with nursing past medical history, surgical, social, and family history. There is no relevant family history pertinent to the presenting complaint. Exam Narrative: GENERAL: Well-appearing, well-nourished, and in no acute distress. HEAD: Normocephalic, atraumatic. EYES: PERRLA and EOMI. ENT: Nares clear, no rhinorrhea or epistaxis. Mucous membranes moist. NECK: Supple. No lymphadenopathy CHEST: Clear to auscultation. No respiratory distress. HEART: Regular rate and rhythm. No murmur heard. Normal peripheral pulses. ABDOMEN: Soft, nontender, nondistended, normal active bowel sounds. EXTREMITIES: Normal range of motion. No edema. SKIN: Warm, dry, no rash. patient has approximately 2 cm x 1 cm raised abscess noted to the left groin area there is no active discharge at this time. There is some surrounding erythema no warmth noted to touch. NEURO: No focal deficits. Alert and oriented x3. Course Course Level of Care: Express Care Visit Vital Signs Vital signs: Vital Signs Temperature 36.7 C 03/17/25 10:38 Pulse Rate 75 03/17/25 10:38 Respiratory Rate 18 03/17/25 10:38 Blood Pressure 127/71 03/17/25 10:38 Pulse Oximetry 100 03/17/25 10:38 Oxygen Delivery Room Air 03/17/25 10:38 Temperature 36.7 C 03/17/25 10:38 Pulse Rate 75 03/17/25 10:38 Respiratory Rate 18 03/17/25 10:38 Blood Pressure 127/71 03/17/25 10:38 Pulse Oximetry 100 03/17/25 10:38 Oxygen Delivery Room Air 03/17/25 10:38 Vital signs reviewed. Procedures Abscess I/D abdomen: Date of Incision: 03/17/25 Time of Incision: 10:45 Side (if applicable): left (groin) Sedation/analgesia: none Local Anesthetic: lidocaine 1% Amount of anesthesia used (mL): 4 Technique: incised with #11 blade Irrigation: Yes Packing used?: none I&D Results: Pus (chunky) Abcess I&D Additional Comments: The procedure was explained and verbal consent is obtained. The wound was anesthetized with4 ml of 1% lidocaine with good anesthesia. Sterile drape and prep are done. The fluctuant center was incised with #11 blade scalpel. A small amount of white exudate was expressed or removed. The wound was probed for loculated area and irrigated with normal saline. Wound was left open. Dressing was applied. The patient tolerated the procedure well. Medical Decision Making MDM Narrative Medical decision making narrative: the wound was opened and drained and a sample was collected and sent to the lab. We will discharge patient home with oral antibiotics and encourage warm compresses to help encourage the wound to drain. Patient verbalized understanding denies any other questions or concerns at this time. Differential Diagnosis Differential Diagnosis: Differential diagnosis: Abscess, cellulitis, hidradenitis, laceration, puncture wound. Vital Signs Vital Signs: Vital Signs Temperature 36.7 C 03/17/25 10:38 Pulse Rate 75 03/17/25 10:38 Respiratory Rate 18 03/17/25 10:38 Blood Pressure 127/71 03/17/25 10:38 Pulse Oximetry 100 03/17/25 10:38 Oxygen Delivery Room Air 03/17/25 10:38 Temperature 36.7 C 03/17/25 10:38 Pulse Rate 75 03/17/25 10:38 Respiratory Rate 18 03/17/25 10:38 Blood Pressure 127/71 03/17/25 10:38 Pulse Oximetry 100 03/17/25 10:38 Oxygen Delivery Room Air 03/17/25 10:38 Critical Care Time Critical Care Time Critical Care Time: No Discharge Plan Discharge Clinical Impression: Abscess of left groin Patient Disposition: Home Condition: Stable Instructions: Antibiotic Form, Abscess Incision and Drainage (DC) Additional Instructions: warm compresses to the area 20-30 minutes 4-6 times a day and as needed elevate the area if possible antibiotic as directed--finish the medicine tylenol/ibuprofen for pain Use the medication as provided for severe pain--cautiion drowsiness--do not drink alcohol or drive with these medications. caution each tablet contains 325 mg of Tylenol--the maximum dose of Tylenol is 4000 mg in 24 hours. This medication may cause constipation consider starting a laxative at this time watch for increasing infection--redness, swelling, drainage if the wound was packed--remove the packing in 2 days follow up with PCP in 2-4 days for a wound check recheck if develop fever, chills, increasing symptoms Patient Language: Sammarinese Prescriptions: New doxycycline hyclate 100 mg capsule 100 mg PO BID 7 Days Qty: 14 0RF No Action cetirizine [Zyrtec] 10 mg Tablet 10 mg PO DAILY valsartan 80 mg tablet 80 mg PO DAILY atenolol 50 mg tablet 50 mg PO DAILY escitalopram oxalate 20 mg tablet 20 mg PO DAILY hydrocodone-acetaminophen 5-325 mg tablet 1 - 2 tablet PO Q6H PRN (Reason: pain) Qty: 25 0RF Follow-up/Referrals: Liv,Nohemy Henley MD [Primary Care Provider] - Time of Disposition: 10:59
[2025-03-17 10:38] VITALS: BP 127/71; PULSE 75; RESP 18; TEMP 36.7; O2SAT 100
== END 2025-03-17 11:00 | disposition home or self-care (01) ==
PROVIDERS: Emergency Provider Nurse Practitioner Family; PCP Family Medicine Sports Medicine
DX: L02.214 Cutaneous abscess of groin (principal); F17.210 Nicotine dependence, cigarettes, uncomplicated
CPT/HCPCS: 10060; 87070; 87075; 87205; 99213; G0463; J2003